=== PATIENT | male | born 1985 | race Caucasian/White ===

== ENCOUNTER 2016-09-21 18:58 | Emergency (ER) | payer MEDICAID ==
[~2016-09-21] VITALS: Ht 165.1 cm; Wt 64.5 kg
[2016-09-21 20:04] VITALS: Ht 165.1 cm; Wt 64.5 kg
[2016-09-21] MEDS ORDERED: DIPHTH/TET/ACEL PERTUSS (ADULT) 0.5 ML VIAL IM* ONE (21:30)
[2016-09-21] MEDS ORDERED: ACET500C5 PO (22:22)
[2016-09-21] MEDS ORDERED: ACETAMINOPHEN 325 MG TAB PO ONE (22:30)
--- NOTE | 2016-09-21 22:33 | ERD ---
ER Documentation Chief Complaint Date/Time DATE: 09/21/16 TIME: 22:26 Chief Complaint lac to the head after a fall HPI 30-year-old male with no significant past medical history presents to the ED complaining of a head injury that occurred earlier today. States that he was kneeling at home and accidentally hit the left side of his head to the stairway. Denies any loss of consciousness. Denies taking any blood thinners. States that he only has pain to the laceration site of his scalp. Denies any generalized headache, nausea, vomiting, weakness, numbness or tingling, dizziness, blurred vision, diplopia. States that he is not up-to-date with his tetanus vaccine. ROS All systems reviewed and are negative except as per history of present illness. Medications Home Meds Active Scripts Acetaminophen* (Tylophen*) 500 Mg Capsule, 1 CAP PO Q6H Y for PAIN AND OR ELEVATED TEMP, #20 CAP Prov:WENDY CHAPIN PA-C 09/21/16 PMhx/Soc History of Surgery: No Anesthesia Reaction: No Hx Neurological Disorder: No Hx Respiratory Disorders: No Hx Cardiac Disorders: No Hx Psychiatric Problems: No Hx Alcohol Use: No Hx Substance Use: No Hx Tobacco Use: No Smoking Status: Never smoker Physical Exam Vitals Vital Signs Date Time Temp Pulse Resp B/P Pulse Ox O2 Delivery O2 Flow Rate FiO2 09/21/16 20:04 97.5 58 18 124/84 99 Physical Exam Const: [id number], well-nourished. In no acute distress. Head: Atraumatic, normocephalic. No hematoma. No marvin sign. Eyes: Normal Conjunctiva without injection. No purulent discharge. PERRLA. EOMI ENT: Normal external ear. Ear canal without erythema. Tympanic membrane pearly salomon without effusion or bulging. No hemotympanum. Nasal canal clear with normal turbinates. Moist oropharynx without tonsillar exudates. Non- erythematous pharynx. Uvula midline. No drooling. No trismus. Neck: No cervical midline tenderness. Full range of motion. No meningismus. No cervical lymphadenopathy. No JVD. Resp: Clear to auscultation bilaterally. No wheezing, rhonchi, rales, or crackles. No accessory muscle use. No retractions. Cardio: Regular rate and rhythm. No murmurs, rubs or gallops. Abd: Soft, non tender, non distended. Normal bowel sounds. No palpable masses. No rebound tenderness. No guarding. Negative McBurney's Point. Negative Abernathy's Sign. Skin: Normal skin turgor. No petechiae, rashes. 3 cm linear laceration noted on the left side of the scalp. Minimal bleeding noted. No deformities noted. Back: No midline tenderness. No CVA tenderness. Ext: No cyanosis, or edema. Distal pulses intact bilaterally. Neur: Awake and alert. Normal gait. Normal coordination. Cranial Nerves II- VII intact. Normal finger to nose. Muscle strength 5/5. Sensation intact. Psych: Normal Mood and Affect Results 24 hrs Current Medications Medications (Trade) Dose Ordered Sig/Viola Route PRN Reason Start Time Stop Time Status Last Admin Dose Admin Diphtheria/ Tetanus/Acell Pertussis (Adacel) 0.5 ml ONCE ONCE IM* 09/21/16 21:30 09/21/16 21:31 DC 09/21/16 21:36 Acetaminophen (Tylenol Tab) 650 mg ONCE ONCE PO 09/21/16 22:30 09/21/16 22:31 09/21/16 22:20 Procedures/MDM This is a 30-year-old male with no significant past medical history presents to the ED complaining of a laceration to the left side of his scalp after a accidental head injury. Patient is afebrile and nontoxic-appearing. Patient has normal vital signs. Patient did not lose consciousness. stated that patient is acting properly at himself. States that he does not have any acute neurological deficits. A CT of the brain without contrast was discussed with the patient at this time, patient and I agreed that there are more risks of radiation at this time I instructed patient strictly and his that he should return immediately for any headache, acute neurological deficits, weakness, lethargy, fatigue, nausea, vomiting for further evaluation and treatment. There is currently low suspicion for intracranial bleed, subarachnoid hemorrhage, epidural hematoma, subdural hematoma, seizures, TIA, stroke, skull fracture or other emergent conditions. She was given Tylenol here in the ED which improved his pain. Tdap was also administered patient. Patient gave consent to perform laceration repair. Laceration Repair by me: Anesthesia: None Location: [Left side of scalp] Tendon/Joint/Nerves: No injury Foreign body: None detected after copious irrigation and exploration Technique: 7 maximo Complexity: No subcutaneous sutures/mucosal repair/ edge excision Post Closure Length: [3] cm Patient's bleeding was easily controlled in the department and there is no indication of anemia. Patient is neurovascularly intact. No evidence of compartment syndrome, neurologic injury, vascular injury, open joint, tendon laceration, or foreign body. Patient is appropriate for outpatient follow up. 48 hour wound check. Scar minimization instructions given. Instructed patient to return for suture removal in 5-7 days. Tylenol was prescribed for pain. Instructed patient to return to the ED sooner for any worsening symptoms. Follow up with primary care physician in 1-2 days. Patient's questions were answered. Patient understood and agreed with discharge plan. Discharge medications: Tylenol Follow up with primary care physician in 1-2 days. Instructed patient to return to the ED sooner for any worsening symptoms. Patient's questions were answered. Patient understood and agreed with discharge plan. Patient discharged stable. Departure Diagnosis: Primary Impression: Head injury Encounter type: initial encounter Qualified Code: S09.90XA - Head injury, initial encounter Additional Impression: Scalp laceration Encounter type: initial encounter Qualified Code: S01.01XA - Scalp laceration, initial encounter Condition: Stable Patient Instructions: HEAD INJURY with Wake-Up (Adult), Laceration, Scalp Referrals: [facility] Usted se martins hecho un examen mdico de control que le indica que no est en taylor condicin que requiera tratamiento urgente en el Departamento de Emergencia. Un estudio ms profundo y el tratamiento de mitchell condicin pueden esperar sin ningn riesgo hasta que usted sea atendida/o en el consultorio de mitchell mdico o taylor cl len. Es responsabilidad suya arreglar taylor george para el seguimiento del navin. MANEJO DE CONDICIONES NO URGENTES EN EL FUTURO 1) Si usted tiene un mdico de atencin primaria: Usted debera llamar a mitchell mdico de atencin primaria antes de venir al departamento de emergencia. Despus de las horas de consultorio, mitchell doctor o mitchell asociado/a est disponible por telfono. El mdico o enfermero de loi en el servicio telefnico puede asesorarle por shelley medio para atender el problema, o navin contrario se puede programar taylor george. 2) Si usted no tiene un mdico de atencin primaria: Llame al mdico o clnica de referencia que aparece abajo dimple las horas de consultorio para hacer taylor george para que le vean. CLINICAS: [facility] [phone] [facility] [phone] [facility] [place] [phone] [facility] [place] [id number] [phone] [facility]. [facility] [phone] [address] [facility] [phone] [address] [facility]. [facility] () Usted se martins hecho un examen mdico de control que le indica que no est en taylor condicin que requiera tratamiento urgente en el Departamento de Emergencia. Un estudio ms profundo y el tratamiento de mitchell condicin pueden esperar sin ningn riesgo hasta que usted sea atendida/o en el consultorio de mitchell mdico o taylor cl len. Es responsabilidad suya arreglar taylor george para el seguimiento del navin. MANEJO DE CONDICIONES NO URGENTES EN EL FUTURO 1) Si usted tiene un mdico de atencin primaria: Usted debera llamar a mitchell mdico de atencin primaria antes de venir al departamento de emergencia. Despus de las horas de consultorio, mitchell doctor o mitchell asociado/a est disponible por telfono. El mdico o enfermero de loi en el servicio telefnico puede asesorarle por shelley medio para atender el problema, o navin contrario se puede programar taylor george. 2) Si usted no tiene un mdico de atencin primaria: Llame al mdico o condado institucions de referencia que aparece abajo dimple las horas de consultorio para hacer taylor george para que le vean. SI USTED NO PUEDE PAGAR PARA ANAIS UN MEDICO puede ir a: [facility] [address] [place] [address] [facility] [address] [place] [address] [facility] [address] [place] [address] [facility] [facility] [address] [place], [place] [id number] [facility] Additional Instructions: Volver al ED en 2 car para taylor revisin de la herida. volver al ED en 5-7 car para el retiro bsica. Regrese a estas instalaciones si no se mejora varinder esperbamos o varinder le dijimos. WENDY CHAPIN PA-C Sep 21, 2016 22:33
[2016-09-21 22:49] VITALS: BP 118/79; PULSE 77; RESP 20; TEMP 98
== END 2016-09-21 22:51 | disposition home or self-care (01) ==
LOC: FTE 18:58
DX: S01.01XA Laceration without foreign body of scalp, initial encounter (principal); W10.8XXA Fall (on) (from) other stairs and steps, initial encounter; Y92.009 Unspecified place in unspecified non-institutional (private) residence as the place of occurrence of the external cause; Z23 Encounter for immunization
CPT/HCPCS: 12002; 90471; 90715; Z7502; Z7610

== ENCOUNTER 2016-09-24 13:42 | Emergency (ER) | payer MEDICAID ==
[~2016-09-24] VITALS: Ht 162.6 cm; Wt 64.5 kg
[~2016-09-24 13:42] MED LIST: ACET500C5 PO
[2016-09-24 13:46] VITALS: Ht 162.6 cm; Wt 64.5 kg
--- NOTE | 2016-09-24 14:51 | ERD ---
ER Documentation Chief Complaint Date/Time DATE: 09/24/16 TIME: 14:50 Chief Complaint RECHECK OF MAXIMO TO HEAD. PLACED 2 DAYS AGO. HPI 30-year-old male states that he fell there coming in for staple wound check that occurred 2 days ago. He states that he did not lose any consciousness, there was no nausea, vomiting, and family states that he has been acting appropriately. ROS All systems reviewed and are negative except as per history of present illness. Medications Home Meds Active Scripts Acetaminophen* (Tylophen*) 500 Mg Capsule, 1 CAP PO Q6H Y for PAIN AND OR ELEVATED TEMP, #20 CAP Prov:WENDY CHAPIN PA-C 09/21/16 PMhx/Soc History of Surgery: No Anesthesia Reaction: No Hx Neurological Disorder: No Hx Respiratory Disorders: No Hx Cardiac Disorders: No Hx Psychiatric Problems: No Hx Alcohol Use: No Hx Substance Use: No Hx Tobacco Use: No Physical Exam Vitals Vital Signs Date Time Temp Pulse Resp B/P Pulse Ox O2 Delivery O2 Flow Rate FiO2 09/24/16 13:46 97.9 60 18 124/78 99 Physical Exam General: Well-developed, well-nourished. The patient appears in no acute distress. HEENT: Head is normocephalic, 7 maximo intact on the left temporal scalp, no dehiscence, erythema or drainage no scleral icterus. Neck: Supple. Nontender. Lungs: Clear to auscultation. Normal air movement. Heart: Regular rate and rhythm. S1 and S2 are normal. No murmurs, gallops, or rubs. Abdomen: Nondistended. Extremities: No clubbing or cyanosis. Moving extremities x 4. No weakness. Neurologic: Alert and oriented 3. No focal deficits. Normal speech and gait. Skin: Normal turgor. No rash or lesions. Procedures/MDM Wound shows no evidence of infection, foreign body, neurologic injury, vascular injury, open joint or tendon laceration. Patient appropriate for outpatient follow up. Departure Diagnosis: Primary Impression: Encounter for wound re-check Condition: Good Patient Instructions: Wound Check, Lac F/U (No Infection) Additional Instructions: SUTURE REMOVAL:CONSULTE A JULITA LEWIS PARA SACAR JULITA ALEXIS-5 car. NICOLAS ARMIJO PA-C Sep 24, 2016 14:51
== END 2016-09-24 14:12 | disposition home or self-care (01) ==
LOC: E/R 13:42
DX: Z48.01 Encounter for change or removal of surgical wound dressing (principal)
CPT/HCPCS: 99281

== ENCOUNTER 2016-09-30 13:47 | Emergency (ER) | payer MEDICAID ==
[~2016-09-30] VITALS: Ht 162.6 cm; Wt 65.0 kg
[2016-09-30 13:51] VITALS: Ht 162.6 cm; Wt 65.0 kg
--- NOTE | 2016-09-30 14:34 | ERD ---
ER Documentation Chief Complaint Date/Time DATE: 09/30/16 TIME: 14:32 Chief Complaint STAPLE ROMOVAL ON LT SIDE OF HEAD HPI 30-year-old male who presents for staple removal from the left occipital scalp. He states 10 days ago he had the sangeeta placed. He denies any fevers chills drainage or discharge. He has no complaints. Inter Com Installer used. ROS All systems reviewed and are negative except as per history of present illness. Medications Home Meds Active Scripts Acetaminophen* (Tylophen*) 500 Mg Capsule, 1 CAP PO Q6H Y for PAIN AND OR ELEVATED TEMP, #20 CAP Prov:WENDY CHAPIN PA-C 09/21/16 PMhx/Soc History of Surgery: No Anesthesia Reaction: No Hx Neurological Disorder: No Hx Respiratory Disorders: No Hx Cardiac Disorders: No Hx Psychiatric Problems: No Hx Alcohol Use: No Hx Substance Use: No Hx Tobacco Use: No FmHx Family History: No diabetes Physical Exam Vitals Vital Signs Date Time Temp Pulse Resp B/P Pulse Ox O2 Delivery O2 Flow Rate FiO2 09/30/16 13:51 98.0 75 18 109/62 99 Physical Exam General: Well developed, well nourished, no acute distress Head: Normocephalic, atraumatic. Eyes: EOM intact ENT: Moist mucous membranes Neck: Full ROM Respiratory: No respiratory distress Cardiovascular: Good capillary refil Abdominal: Nondistended : Deferred MSK: No edema, no unilateral swelling, 5/5 strength Neurologic: Alert and oriented, moving all extremities, normal speech, steady gait Skin: Sangeeta located in the left occipital scalp are clean dry and intact, small crusting, no bleeding, no erythema warmth tenderness or drainage. Psych: Normal mood Procedures/MDM Staple Removal Note: The patient was verbally consented prior to procedure and understands the risks , benefits, and alternatives. The patient is agreeable to procedure and has given verbal consent. Location: Left scalp Inspection: There is no evidence of deep tissue or structural injury, no evidence of foreign bodies, no evidence of wound dehiscence or infection All sangeeta removed intact using staple removal device. A clean dressing was applied. The patient tolerated the procedure well with no complications. The patient's wound is extremely well-appearing here in the emergency room. There are no signs or symptoms concerning for complication such as wound dehiscence, wound infection, cellulitis, or deep space infection. I discussed routine wound care as well as scar minimization techniques. The patient is safe for discharge with outpatient primary care follow-up as needed. We discussed follow up with the patient's primary care doctor within 24 to 48 hours as needed. We also discussed return to the emergency room for worsening symptoms or worsening condition. Departure Diagnosis: Primary Impression: Encounter for removal of sangeeta Additional Impression: Encounter for wound re-check Condition: Stable Patient Instructions: Staple Removal, No Complication Referrals: [facility]) Usted se martins hecho un examen mdico de control que le indica que no est en margo condicin que requiera tratamiento urgente en el Departamento de Emergencia. Un estudio ms profundo y el tratamiento de mitchell condicin pueden esperar sin ningn riesgo hasta que usted sea atendida/o en el consultorio de mitchell mdico o margo cl len. Es responsabilidad suya arreglar margo panchito para el seguimiento del navin. MANEJO DE CONDICIONES NO URGENTES EN EL FUTURO 1) Si usted tiene un mdico de atencin primaria: Usted debera llamar a mitchell mdico de atencin primaria antes de venir al departamento de emergencia. Despus de las horas de consultorio, mitchell doctor o mitchell asociado/a est disponible por telfono. El mdico o enfermero de loi en el servicio telefnico puede asesorarle por shelley medio para atender el problema, o navin contrario se puede programar margo panchito. 2) Si usted no tiene un mdico de atencin primaria: Llame al mdico o clnica de referencia que aparece abajo dimple las horas de consultorio para hacer margo panchito para que le vean. CLINICAS: [facility] [phone] [facility] 207 [phone] [address] [facility] 628 [phone] [address] [facility]. [facility] [phone] [address] [facility]. [facility] 164 [phone] [address] [facility]. [phone] [address] [facility]. [facility] () Usted se martins hecho un examen mdico de control que le indica que no est en margo condicin que requiera tratamiento urgente en el Departamento de Emergencia. Un estudio ms profundo y el tratamiento de mitchell condicin pueden esperar sin ningn riesgo hasta que usted sea atendida/o en el consultorio de mitchell mdico o margo cl len. Es responsabilidad suya arreglar margo panchito para el seguimiento del navin. MANEJO DE CONDICIONES NO URGENTES EN EL FUTURO 1) Si usted tiene un mdico de atencin primaria: Usted debera llamar a mitchell mdico de atencin primaria antes de venir al departamento de emergencia. Despus de las horas de consultorio, mitchell doctor o mitchell asociado/a est disponible por telfono. El mdico o enfermero de loi en el servicio telefnico puede asesorarle por shelley medio para atender el problema, o navin contrario se puede programar margo panchito. 2) Si usted no tiene un mdico de atencin primaria: Llame al mdico o condado institucions de referencia que aparece abajo dimple las horas de consultorio para hacer margo panchito para que le vean. SI USTED NO PUEDE PAGAR PARA ANAIS UN MEDICO puede ir a: [facility] [address] [place] [address] [facility] [address] [place] [address] [facility] [address] [place] [address] PARA [facility] [address] [address] Additional Instructions: Llame al doctor nombrado abajo (Referral Sources) MAANA y marzena margo PANCHITO PARA DENTRO DE MARGO SEMANA. Dgale a la secretaria que nosotros le instruimos hacer esta panchito.Avise o llame si mitchell condicin se empeora antes de la panchito. TORRES CHAO MD Sep 30, 2016 14:34
== END 2016-09-30 14:40 | disposition home or self-care (01) ==
LOC: FTE 13:47
DX: Z48.02 Encounter for removal of sutures (principal); Z48.01 Encounter for change or removal of surgical wound dressing
CPT/HCPCS: 99281

== ENCOUNTER 2017-05-07 17:13 | Emergency (ER) | payer MEDICAID ==
[~2017-05-07] VITALS: Ht 152.4 cm; Wt 67.5 kg
[2017-05-07 17:46] VITALS: Ht 152.4 cm; Wt 67.5 kg
[2017-05-07] MEDS ORDERED: FLUORESCEIN STRIP RIGHT EYE ONE (20:00)
[2017-05-07] MEDS ORDERED: OPHTHALMIC IRRIG SOLUTION 120 ML RIGHT EYE ONE (20:00)
[2017-05-07] MEDS ORDERED: TETRACAINE 0.5% 4 ML OPH RIGHT EYE ONE (20:00)
--- NOTE | 2017-05-07 20:23 | ERD ---
ER Documentation Chief Complaint Chief Complaint hit with metal in right eye, possible dust in eye today HPI 31-year-old male presents here in emergency department for complaints of any foreign body sensation tearing after some particles of metal went inside the right eye today. Patient had the pain, burning pain 4/10 scale, the tearing has improved. Patient denies any vision changes. Patient denies any direct trauma in affected area. ROS All systems reviewed and are negative except as per history of present illness. Medications Home Meds Active Scripts Moxifloxacin Hcl* (Vigamox*) 0.5% - 3 Ml Opht, 1 DROP RIGHT EYE TID, #1 EA Prov:CATHERINE ABREU NP 05/07/17 Acetaminophen* (Tylophen*) 500 Mg Capsule, 1 CAP PO Q6H Y for PAIN AND OR ELEVATED TEMP, #20 CAP Prov:WENDY CHAPIN PA-C 09/21/16 Allergies Allergies: Coded Allergies: No Known Allergy (Unverified , 05/07/17) PMhx/Soc Medical and Surgical Hx: pt denies Medical Hx, pt denies Surgical Hx History of Surgery: No Anesthesia Reaction: No Hx Neurological Disorder: No Hx Respiratory Disorders: No Hx Cardiac Disorders: No Hx Psychiatric Problems: No Hx Alcohol Use: No Hx Substance Use: No Hx Tobacco Use: No Smoking Status: Never smoker FmHx Family History: No coronary disease, No diabetes, No other Physical Exam Vitals Vital Signs Date Time Temp Pulse Resp B/P Pulse Ox O2 Delivery O2 Flow Rate FiO2 05/07/17 17:46 99.2 61 18 125/75 99 Physical Exam GENERAL: The patient is well developed and appropriate for usual state of health, in no apparent distress. CHEST: Clear to auscultation bilaterally. There are no rales, wheezes or rhonchi. HEART: Regular rate and rhythm. No murmurs, clicks, rubs or gallops. No S3 or S4. ABDOMEN: Soft, nontender and nondistended. Good bowel sounds. No rebound or guarding. No gross peritonitis. No gross organomegaly or masses. No Abernathy sign or McBurney point tenderness. BACK: No midline or flank tenderness. EXTREMITIES: Equal pulses bilaterally. There is no peripheral clubbing, cyanosis or edema. No focal swelling or erythema. Full range of motion. Grossly neurovascularly intact. NEURO: Alert and oriented. Cranial nerves 2-12 intact. Motor strength in all 4 extremities with 5/5 strength. Sensation grossly intact. Normal speech and gait. SKIN: There is no apparent rash or petechia. The skin is warm and dry. HEMATOLOGIC AND LYMPHATIC: There is no evidence of excessive bruising or lymphedema. No gross cervical, axillary, or inguinal lymphadenopathy. Results 24 hrs Current Medications Medications (Trade) Dose Ordered Sig/Viola Route PRN Reason Start Time Stop Time Status Last Admin Dose Admin Tetracaine HCl (Tetracaine 0.5% Steri-Unit Darcie) 1 drop ONCE ONCE RIGHT EYE 05/07/17 20:00 05/07/17 20:01 DC Fluorescein Sodium (Wlqxx-R-Gavvn) 1 strip ONCE ONCE RIGHT EYE 05/07/17 20:00 05/07/17 20:01 DC Irrigating Solution (Eye Wash) 1 applic ONCE ONCE RIGHT EYE 05/07/17 20:00 05/07/17 20:01 DC Procedure Note: After obtaining informed consent, the right eye was stained using fluorescein dye. After staining the eye, A Wood's lamp was used to evaluate the eye. There is no foreign body noted in the eye. No corneal abrasions noted. noted Conjunctival abrasion. Patient tolerated procedure well. Procedures/MDM Echo decision making: Patient symptoms was likely is consistent with conjunctival abrasion. Patient does not have any foreign body in the eye. No foreign body noted. No corneal abrasion. No symptoms of any other eye emergencies. Patient does not have any symptoms of herpes simplex virus, retinal detachment, no Shayy sign. Prescription was given for Vigamox, is advised to follow-up with eye doctor within 1-2 days for reevaluation of symptoms. Patient was advised to return to emergency department for any worsening symptoms. Disposition: Home. Stable. Departure Diagnosis: Primary Impression: Conjunctival abrasion Encounter type: initial encounter Laterality: right Qualified Code: S05.01XA - Abrasion of right conjunctiva, initial encounter Condition: Stable Patient Instructions: Conjunctival Foreign Body, Resolved CATHERINE ABREU NP May 07, 2017 20:19
[2017-05-07] MEDS ORDERED: VIGA RIGHT EYE (20:29)
== END 2017-05-07 20:36 | disposition home or self-care (01) ==
LOC: FTE 17:13
DX: S05.01XA Injury of conjunctiva and corneal abrasion without foreign body, right eye, initial encounter (principal); X58.XXXA Exposure to other specified factors, initial encounter; Y92.9 Unspecified place or not applicable
CPT/HCPCS: Z7502; Z7610; 99283